=== PATIENT | female | born 2000 | race Caucasian/White ===

== ENCOUNTER 2019-04-23 21:04 | Emergency (ER) | payer SELFPAY ==
--- NOTE | 2019-04-23 21:50 | EDM.PDOC ---
ED HPI GENERAL MEDICAL PROBLEM - General Chief Complaint: Respiratory Problem Stated Complaint: CONGESTION/COUGH/SOB Time Seen by Provider: 04/23/19 21:35 Source of Information: Reports: Patient History Limitations: Reports: No Limitations - History of Present Illness INITIAL COMMENTS - FREE TEXT/NARRATIVE: 18-year-old female presents to the ED with her boyfriend. She states she has had a very harsh paroxysmal cough with intermittent wheezing for the last 6 days. Cough interferes with her ability to sleep. She is running a fever and cough is intermittently producing greenish sputum. Low-grade fever with chills at times. Very sore throat. She states she's very short of breath on exertion such as when she tries to play softball. She is on the [employer] [facility] [employer] team. Coughing paroxysmal A. fib the point that she can't hardly practice her sport. Her boyfriend did give her 2 Zithromax tablets yesterday I 500 mg starting dose. She has not taken any today. Onset: Gradual Onset Date: 04/17/19 Duration: Day(s):, Getting Worse (6 days) Location: Reports: Chest (Harsh paroxysmal productive cough of greenish sputum. Some breath due to coughing possibly wheezing.) Quality: Reports: Ache, Pressure (Central chest aching discomfort) Severity: Moderate Improves with: Reports: None Worsens with: Reports: Other Context: Reports: Other. Denies: Activity (Worse when she lies down and upon exposure to cool night air.), Exercise, Lifting, Sick Contact, Trauma Associated Symptoms: Reports: Chest Pain, Cough (Central chest pain from coughing.), cough w sputum, Loss of Appetite, Malaise, Shortness of Breath. Denies: Confusion (Spontaneous to [place] of upper respiratory tract infection.) , Diaphoresis, Fever/Chills, Headaches (Sputum), Nausea/Vomiting, Rash, Seizure (On exertion.), Syncope, Weakness Treatments NATIONAL RECRUITER: Reports: Other (see below) (Did take 2 tablets of Zithromax 250 mg strength yesterday. This was her boyfriend's prescription.) Throat Pain Score (Numeric/FACES): 5 - Related Data Allergies Allergy/AdvReac Type Severity Reaction Status Date / Time No Known Allergies Allergy Verified 04/23/19 21:20 Home Meds: Home Meds Azithromycin [Zithromax] 250 mg PO DAILY #6 tab 04/23/19 [Rx] Hydrocodone/Chlorphen P-Stirex [Hydrocodone-Chlorphen ER Susp] 5 ml PO DAILY PRN #50 ml 04/23/19 [Rx] Levonorgestrel-Ethin Estradiol [Falmina-28 Tablet] 1 tab PO DAILY 04/23/19 [ History] predniSONE [Prednisone] 20 mg PO ASDIRECTED #10 tablet 04/23/19 [Rx] Past Medical History - Past Health History Medical/Surgical History: Denies Medical/Surgical History Social & Family History - Tobacco Use Smoking Status *Q: Never Smoker - Caffeine Use Caffeine Use: Reports: Soda - Recreational Drug Use Recreational Drug Use: No - Living Situation & Occupation Living situation: Reports: Single Occupation: Student ED ROS GENERAL - Review of Systems Review Of Systems: See Below Constitutional: Reports: Fever, Chills, Malaise, Weakness, Fatigue, Decreased Appetite HEENT: Reports: Throat Pain (For the last 3 days) Respiratory: Reports: Shortness of Breath, Wheezing, Cough, Sputum. Denies: Pleuritic Chest Pain, Hemoptysis Cardiovascular: Reports: Chest Pain (Greenish sputum), Dyspnea on Exertion, Lightheadedness. Denies: Blood Pressure Problem, Claudication, Edema ( Occasionally coughs appoint of being lightheaded.), Orthopnea, Palpitations, PND , Syncope, Other Endocrine: Reports: No Symptoms GI/Abdominal: Reports: Decreased Appetite : Reports: No Symptoms, Other Musculoskeletal: Reports: No Symptoms Skin: Reports: No Symptoms (Last last occurred was about 2 weeks ago. She is on oral contraceptive pill.) Neurological: Reports: No Symptoms Psychiatric: Reports: No Symptoms Hematologic/Lymphatic: Reports: No Symptoms Immunologic: Reports: No Symptoms ED EXAM, GENERAL - Physical Exam Exam: See Below Exam Limited By: Uncooperative General Appearance: Alert, WD/WN, No Apparent Distress, Other (Temperature is 36.7. Heart rate is 60 and sinus respiratory distress 20 with O2 sats of 99% on room air. BP is 1 05/20/70.) Eye Exam: Bilateral Eye: Normal Inspection Ears: Other (Mild right serous otitis media.) Throat/Mouth: Other (Or paroxysmal quite erythematous. No exudate noted.) Head: Atraumatic, Normocephalic Neck: Normal Inspection, Supple, Non-Tender, Full Range of Motion. No: Carotid Bruit, Lymphadenopathy (L), Lymphadenopathy (R) Respiratory/Chest: Respiratory Distress (Mild tachypnea.), Wheezing. No: Lungs Clear, Normal Breath Sounds (Occasional expiratory wheeze from the base of her lungs.), No Accessory Muscle Use, Chest Non-Tender, Rhonchi Cardiovascular: Normal Peripheral Pulses, Regular Rate, Rhythm, No Edema, No Gallop, No Murmur, No Rub Peripheral Pulses: 3+: Posterior Tibial (L), Posterior Tibial (R), Dorsalis Pedis (L), Dorsalis Pedis (R) GI/Abdominal: Normal Bowel Sounds, Soft, Non-Tender, No Organomegaly, No Abnormal Bruit, No Mass, Pelvis Stable Back Exam: Normal Inspection, Full Range of Motion. No: CVA Tenderness (L), CVA Tenderness (R) Extremities: Normal Inspection, Normal Range of Motion, Non-Tender, No Pedal Edema Neurological: Alert, Oriented, CN II-XII Intact, Normal Cognition Psychiatric: Normal Affect, Normal Mood Skin Exam: Warm, Dry, Intact, Normal Color, No Rash Course - Vital Signs Last Recorded V/S: Last Vital Signs Temp 36.7 C 04/23/19 21:17 Pulse 60 04/23/19 21:17 Resp 20 04/23/19 21:17 BP 112/70 04/23/19 21:17 Pulse Ox 99 04/23/19 21:17 - Orders/Labs/Meds Orders: Active Orders 24 hr Category Date Time Status Chest 2V [CR] Stat Exams 04/23/19 21:42 Taken CULTURE STREP A CONFIRMATION [RM] Stat Lab 04/23/19 21:45 Results STREP SCRN A RAPID W CULT CONF [RM] Stat Lab 04/23/19 21:45 Results Meds: Medications Discontinued Medications Generic Name Dose Route Start Last Admin Trade Name Freq PRN Reason Stop Dose Admin Prednisone 20 mg 04/23/19 22:33 04/23/19 22:43 Prednisone PO 04/23/19 22:34 20 mg ONETIME ONE Administration Promethazine HCl/Codeine 10 ml 04/23/19 22:34 04/23/19 22:43 Phenergan With Codeine PO 04/23/19 22:35 10 ml ONETIME ONE Administration - Radiology Interpretation Free Text/Narrative:: 18-year-old female attends the ED due to severe paroxysmal cough 6 days. She feels it is getting worse. She is bringing up some green phlegm intermittently. She states she did lose her voice completely a few days ago but has a raspy voice at this time. Complains of diffuse sore throat. Continues to have low- grade fever and chills. Appetite remains poor. It's of Zithromax IV 500 mg yesterday but none so far today. Examination reveals a very red throat. Mild fluid behind her right tympanic membrane. Lungs sound clear to stage percussion with a productive sounding cough. No wheezes. Plan chest x-ray and rapid strep screen to be done. - Re-Assessments/Exams Free Text/Narrative Re-Assessment/Exam: 04/23/19 22:04 chest x-ray is negative for pneumonia. However there is a round nodule left upper lobe of the lung that measures 2.1 x 1.8 cm. Slightly represents a benign hamartoma. Cardiac silhouette is normal. There is no lung infiltrate to suggest pneumonia. When the chest x-ray was discussed with the tech who took the film indicates that her ponytail self was sitting on her left upper lobe which is the nodule is appreciated on the x-ray. He had already done x-ray with her necklace in place and remove the neck place and then a second x-ray. He was reluctant to do a third x-ray due to radiation exposure due to the confirmed ponytail self being the source of her suspect left upper lobe nodule. 04/23/19 22:24 rapid strep screen is negative. Plan I'm going to place her on prednisone 20 mg twice daily for 3 days and then once daily for another 3 days. She has access to an albuterol inhaler will use this 2 puffs every 4 hours if needed for relief of cough. Tonight I'm going to give her Phenergan with codeine cough syrup 10 mils by mouth. Script will be written for Jeronimo taking 250 mg once daily since she took 500 mg already within the last 24 hours. Tussionex cough syrup 5 mils at bedtime as needed for cough relief. Diagnosis is bronchitis with wheeze. Departure - Departure Time of Disposition: 22:33 Disposition: Home, Self-Care 01 Condition: Fair Clinical Impression: Bronchitis - Discharge Information *PRESCRIPTION DRUG MONITORING PROGRAM REVIEWED*: Not Applicable *COPY OF PRESCRIPTION DRUG MONITORING REPORT IN PATIENT [place]: Not Applicable Prescriptions: Azithromycin [Zithromax] 250 mg PO DAILY #6 tab Hydrocodone/Chlorphen P-Stirex [Hydrocodone-Chlorphen ER Susp] 5 ml PO DAILY PRN #50 ml PRN Reason: Cough relief predniSONE [Prednisone] 20 mg PO ASDIRECTED #10 tablet Instructions: Acute Bronchitis, Adult, [id number] Referrals: Mouna Romero BAGG[employer]LER [Primary Care Provider] - Forms: ED Department Discharge, ED Return to Work/School Form Additional Instructions: Evaluation the emergency room today in regards to 6 day history of paroxysmal severe cough with loss of voice and sputum production greenish in color. Chest x -ray was done and is negative for pneumonia.This is bronchitis. Treatment is to be antibiotic Zithromax 250 mg once daily for the next 6 days. Prednisone 20 mg twice daily for 3 days breakfast and supper and then one in the morning only for another 4 days. Cough syrup is to be Tussionex 5 mils about an hour before bed to help sleep. Can be used as needed. Expect marked improvement over the next 72 hours. - My Orders Last 24 Hours: My Active Orders 04/23/19 21:42 Chest 2V [CR] Stat 04/23/19 21:45 CULTURE STREP A CONFIRMATION [RM] Stat STREP SCRN A RAPID W CULT CONF [] Stat - Assessment/Plan Last 24 Hours: My Active Orders 04/23/19 21:42 Chest 2V [CR] Stat 04/23/19 21:45 CULTURE STREP A CONFIRMATION [RM] Stat STREP SCRN A RAPID W CULT CONF [] Stat
[2019-04-23] MEDS ORDERED: predniSONE 20 MG Tab PO ONE (22:33)
[2019-04-23] MEDS ORDERED: Codeine/Promethazine 10-6.25 MG/5 ML Syrup 5 ML UD Cup PO ONE (22:34)
--- NOTE | 2019-04-24 07:39 | CR ---
Chest: Two views of the chest were obtained. Comparison: No prior chest x-ray. Heart size and mediastinum are normal. Lungs are clear. Bony structures are unremarkable. Impression: 1. Nothing acute is seen on two-view chest x-ray. Diagnostic code #1
== END 2019-04-23 23:15 | disposition home or self-care (01) ==
LOC: JD.ED 21:04
DX: J40 Bronchitis, not specified as acute or chronic (principal); H65.91 Unspecified nonsuppurative otitis media, right ear
CPT/HCPCS: 71046; 71046-26; 87081; 87430; 99283; 99285-25; A9270-GY

== ENCOUNTER 2021-12-27 19:17 | Emergency (ER) | payer BC, OTHER ==
[2021-12-27] MEDS ORDERED: Sodium Chloride 0.9% 10 ML Syringe FLUSH PRN (19:39)
== END 2021-12-27 21:50 | disposition home or self-care (01) ==
LOC: JD.ED 19:17 → SUPCPDRO 19:17 → JD.ED 21:50
DX: O20.9 Hemorrhage in early pregnancy, unspecified (principal); Z3A.08 8 weeks gestation of pregnancy
CPT/HCPCS: 36415; 76817; 76817-26; 84702; 85025; 86900; 86901; 99283; 99284

== ENCOUNTER 2022-07-27 01:38 | Inpatient (IN) | payer BC ==
[2022-07-27] MEDS ORDERED: Nalbuphine 10 MG/0.5 ML Syringe IVPUSH PRN (09:41)
[2022-07-27] MEDS ORDERED: Ondansetron 4 MG/2 ML SDV IVPUSH PRN (09:41)
[2022-07-27] MEDS ORDERED: Sodium Chloride 0.9% 10 ML Syringe FLUSH PRN (09:41)
[2022-07-27] MEDS ORDERED: Oxytocin/Lactated Ringers 10 UNIT/1,000 ML BAG IV SCH ×2 (09:45)
[2022-07-27] MEDS ORDERED: Ampicillin 2 GM in Sodium Chloride 0.9% 100 ML IV ONE (10:00)
[2022-07-27] MEDS: Lactated Ringers 1,000 ML IV SCH ×4 (10:28→23:00)
[2022-07-27] MEDS ORDERED: fentaNYL 100 MCG/2 ML SDV EPIDUR PRN (10:45)
[2022-07-27] MEDS ORDERED: Bupivacaine/fentaNYL/NS 100 ML Bag EPIDUR PRN (10:45)
[2022-07-27] MEDS ORDERED: ePHEDrine 50 MG/ML SDV IVPUSH PRN (10:45)
[2022-07-27] MEDS ORDERED: diphenhydrAMINE 50 MG/ML SDV IVPUSH PRN (10:45)
[2022-07-27] MEDS: Ampicillin 1 GM in Sodium Chloride 0.9% 100 ML IV SCH ×3 (14:26→22:47)
[2022-07-27] MEDS ORDERED: Sodium Chloride 0.9% 10 ML Syringe FLUSH SCH (21:00)
[2022-07-28] MEDS ORDERED: Benzocaine/Menthol 20%-0.5% Spray 78 GM Cannister TOP PRN (02:33)
[2022-07-28] MEDS ORDERED: Witch Hazel Medicated Pads 40/Jar TOP PRN (02:33)
[2022-07-28] MEDS ORDERED: Bupivacaine 0.25% 10 ML SDV ONE (03:00)
[2022-07-28] MEDS: Ibuprofen 600 MG Tab PO PRN ×3 (09:16→23:38)
[2022-07-28] MEDS: Docusate Sodium 100 MG Cap PO PRN (09:16)
[2022-07-28] MEDS: Acetaminophen 325 MG Tab PO PRN ×2 (12:13→17:38)
[2022-07-29] MEDS: Ibuprofen 600 MG Tab PO PRN ×2 (05:44→17:16)
[2022-07-29] MEDS: Docusate Sodium 100 MG Cap PO PRN ×2 (05:44→17:16)
[2022-07-29] MEDS: Acetaminophen 325 MG Tab PO PRN (09:47)
[2022-07-29] MEDS: Ampicillin 1 GM in Sodium Chloride 0.9% 100 ML IV SCH (14:51)
== END 2022-07-29 21:15 | disposition home or self-care (01) | DRG 560 ==
LOC: JD.OB 01:38 → OBSVTOIN 07-28 01:38 → JD.OB 07-28 01:39
PROVIDERS: ADMIT Obstetrics & Gynecology; ATTEND Obstetrics & Gynecology
PROC: 10D07Z6 Extraction of Products of Conception, Vacuum, Via Natural or Artificial Opening (ICD-10-PCS; principal; 2022-07-28)
PROC: 0KQM0ZZ Repair Perineum Muscle, Open Approach (ICD-10-PCS; 2022-07-28)
PROC: 0W8NXZZ Division of Female Perineum, External Approach (ICD-10-PCS; 2022-07-28)
PROC: 10907ZC Drainage of Amniotic Fluid, Therapeutic from Products of Conception, Via Natural or Artificial Opening (ICD-10-PCS; 2022-07-28)
PROC: 3E0R3BZ Introduction of Anesthetic Agent into Spinal Canal, Percutaneous Approach (ICD-10-PCS; 2022-07-28)
PROC: 00HU33Z Insertion of Infusion Device into Spinal Canal, Percutaneous Approach (ICD-10-PCS; 2022-07-28)
PROC: 3E033VJ Introduction of Other Hormone into Peripheral Vein, Percutaneous Approach (ICD-10-PCS; 2022-07-28)
DX: O99.824 Streptococcus B carrier state complicating childbirth (principal); Z3A.39 39 weeks gestation of pregnancy; Z37.0 Single live birth; O26.843 Uterine size-date discrepancy, third trimester; O70.1 Second degree perineal laceration during delivery
CPT/HCPCS: 36415; 51702; 59025; 59409; 85025; 86592; A9270-GY; J0290; J2300; J2405; J2590; J3010; J3490; J7120

== ENCOUNTER 2022-08-10 18:49 | Emergency (ER) | payer BC ==
[2022-08-10] MEDS ORDERED: Sodium Chloride 0.9% 10 ML Syringe FLUSH PRN (19:44)
[2022-08-10] MEDS ORDERED: Sodium Chloride 0.9% 1,000 ML IV ONE (19:44)
[2022-08-10] MEDS ORDERED: Ondansetron 4 MG/2 ML SDV IVPUSH ONE (20:04)
[2022-08-10] MEDS ORDERED: HYDROmorphone 0.5 MG/0.5 ML Syringe IVPUSH ONE (20:04)
[2022-08-10 20:48] LABS: CORONAVIRUS COVID-19 NAA NEGATIVE (NEGATIVE)
[2022-08-10] MEDS ORDERED: cefTRIAXone 2 GM in Sodium Chloride 0.9% 100 ML IV ONE (20:50)
== END 2022-08-10 22:43 | disposition home or self-care (01) ==
LOC: JD.ED 18:49
DX: O86.09 Infection of obstetric surgical wound, other surgical site (principal); Z20.822 Contact with and (suspected) exposure to COVID-19
CPT/HCPCS: 0241U; 36415; 80053; 83605; 85007; 85027; 85610; 86140; 87040; 87086; 96361; 96365; 96375; 99284; J0696; J1170; J2405; J3490; J7030; 81001; 99283

== ENCOUNTER 2024-03-22 18:55 | Inpatient (IN) | payer BC ==
[~2024-03-22 18:55] MED LIST: Bupivacaine 0.25% 10 ML SDV ONE
[2024-03-22] MEDS ORDERED: Lidocaine 1% 50 ML MDV INJECT PRN (19:05)
[2024-03-22] MEDS ORDERED: Oxytocin/0.9 % Sodium Chloride 30 UNIT/500 ML BAG IV SCH (19:15)
[2024-03-22 19:25] LABS: BASOPHILS ABSOLUTE AUTO 0.1 K/mm3 (0.0-0.2); BASOPHILS PERCENT AUTO 0.5 % (0.0-1.0); EOSINOPHILS ABSOLUTE AUTO 0.1 K/mm3 (0.0-0.4); EOSINOPHILS PERCENT AUTO 0.6 % (0.0-6.0); HEMATOCRIT 42.8 % (37.0-47.0); HEMOGLOBIN 14.8 gm/dl (12.0-16.0); IMMATURE GRAN ABSOLUTE AUTO 0.06 K/mm3 (0.00-0.05); IMMATURE GRAN PERCENT AUTO 0.6 % (0.0-0.4); LYMPHOCYTES PERCENT AUTO 19.8 % (24.0-44.0); MEAN CORPUSCULAR HEMOGLOBIN 29.2 pg (28.0-32.0); MEAN CORPUSCULAR HGB CONC 34.6 g/dl (32.0-36.0); MEAN CORPUSCULAR VOLUME 84.6 fl (83.0-99.0); MONOCYTES ABSOLUTE AUTO 0.7 K/mm3 (0.0-0.8); MONOCYTES PERCENT AUTO 7.4 % (0.0-8.0); NEUTROPHILS ABSOLUTE AUTO 7.2 K/mm3 (1.8-7.7); NEUTROPHILS PERCENT AUTO 71.1 % (41.0-71.0); PLATELET COUNT,PLT 254 K/mm3 (150-400); RED BLOOD CELL COUNT 5.06 M/mm3 (4.10-5.30); WHITE BLOOD CELL COUNT,WBC 10.05 K/mm3 (3.9-11.3)
[2024-03-22] MEDS: Lactated Ringers 1,000 ML IV SCH (22:42)
[2024-03-22] MEDS ORDERED: ePHEDrine 50 MG/ML SDV IVPUSH PRN (22:52)
[2024-03-22] MEDS ORDERED: diphenhydrAMINE 50 MG/ML SDV IVPUSH PRN (22:52)
[2024-03-22] MEDS ORDERED: Bupivacaine 0.25% 10 ML SDV INJECT ONE (22:54)
[2024-03-22] MEDS: fentaNYL 100 MCG/2 ML SDV EPIDUR PRN (23:02)
[2024-03-22] MEDS: Bupivacaine/fentaNYL/NS 100 ML Bag EPIDUR PRN (23:03)
[2024-03-23] MEDS: Oxytocin/0.9 % Sodium Chloride 30 UNIT/500 ML BAG IV SCH (00:43)
[2024-03-23] MEDS ORDERED: Simethicone 80 MG Tab.Chew PO PRN (04:34)
[2024-03-23] MEDS: Benzocaine/Menthol 20%-0.5% Spray 78 GM Cannister TOP PRN (05:24)
[2024-03-23] MEDS: Witch Hazel Medicated Pads 40/Jar TOP PRN (05:24)
[2024-03-23] MEDS: Acetaminophen 325 MG Tab PO SCH (05:24)
[2024-03-23] MEDS: Docusate Sodium 100 MG Cap PO PRN (20:08)
[2024-03-23] MEDS: Ibuprofen 600 MG Tab PO PRN (20:09)
== END 2024-03-24 12:05 | disposition home or self-care (01) | DRG 560 ==
LOC: JD.OBCHECK 18:55 → JD.OB 18:56 → OBSVTOIN 03-23 03:34 → JD.OB 03-23 03:35
PROVIDERS: ADMIT Obstetrics & Gynecology; ATTEND Obstetrics & Gynecology
PROC: 10E0XZZ Delivery of Products of Conception, External Approach (ICD-10-PCS; principal; 2024-03-23)
PROC: 10907ZC Drainage of Amniotic Fluid, Therapeutic from Products of Conception, Via Natural or Artificial Opening (ICD-10-PCS; 2024-03-23)
PROC: 3E0R3BZ Introduction of Anesthetic Agent into Spinal Canal, Percutaneous Approach (ICD-10-PCS; 2024-03-23)
PROC: 00HU33Z Insertion of Infusion Device into Spinal Canal, Percutaneous Approach (ICD-10-PCS; 2024-03-23)
PROC: 0KQM0ZZ Repair Perineum Muscle, Open Approach (ICD-10-PCS; 2024-03-23)
DX: O70.1 Second degree perineal laceration during delivery (principal); Z3A.39 39 weeks gestation of pregnancy; Z37.0 Single live birth
CPT/HCPCS: 36415; 51701; 59025; 59409; 85025; 86592; A9270-GY; C1758; J0665; J3010; J3490; J7120; J7999